=== PATIENT | male | born 1980 | race Caucasian/White ===

== ENCOUNTER 2022-02-22 13:08 | Emergency (ER) | payer MEDICAID, OTHER ==
[~2022-02-22] VITALS: Ht 182.9 cm; Wt 101.8 kg
[~2022-02-22 13:08] MED LIST: LIDOCAINE 5% PATCH; LISI20TA5; MESALAMINE; NO HOME MEDS; PRIL20CA; VICO5TAB
[2022-02-22 13:09] VITALS: BP 143/82
== END 2022-02-22 18:13 | disposition home or self-care (01) ==
LOC: M ED 13:08
DX: L23.5 Allergic contact dermatitis due to other chemical products (principal); I10 Essential (primary) hypertension; F33.9 Major depressive disorder, recurrent, unspecified; F41.9 Anxiety disorder, unspecified; H40.9 Unspecified glaucoma; Z86.73 Personal history of transient ischemic attack (TIA), and cerebral infarction without residual deficits

== ENCOUNTER 2022-05-30 21:25 | Emergency (ER) | payer OTHER ==
[~2022-05-30] VITALS: Ht 182.9 cm; Wt 105.4 kg
[2022-05-31 03:54] VITALS: BP 142/88
== END 2022-05-31 03:55 | disposition home or self-care (01) ==
LOC: M ED 21:25
DX: K62.5 Hemorrhage of anus and rectum (principal); I10 Essential (primary) hypertension; Z88.8 Allergy status to other drugs, medicaments and biological substances; Z91.018 Allergy to other foods; Z91.048 Other nonmedicinal substance allergy status

== ENCOUNTER 2022-09-10 20:22 | Emergency (ER) | payer OTHER ==
[~2022-09-10] VITALS: Ht 182.9 cm; Wt 97.7 kg
[2022-09-10 20:22] VITALS: BP 141/74
== END 2022-09-10 22:50 | disposition left against medical advice (07) ==
LOC: M ED 20:22
DX: Z53.21 Procedure and treatment not carried out due to patient leaving prior to being seen by health care provider (principal)

== ENCOUNTER → 2022-10-30 | Outpatient (REF) | payer OTHER ==
[2022-10-30 13:25] LABS: CHOLESTEROL RISK RATIO 7.5 (<5); HDL CHOLESTEROL 30.1 MG/DL (>40); LDL CHOLESTEROL 169.3 MG/DL (<100)
== END ==
LOC: M LAB REF 12:10
PROVIDERS: ATTEND Nurse Practitioner Family
DX: E78.5 Hyperlipidemia, unspecified (principal)

== ENCOUNTER → 2022-11-06 | Outpatient (CLI) | payer OTHER | LOC: M RAD 10:38 | PROVIDERS: ATTEND Nurse Practitioner Family | DX: M25.532 Pain in left wrist (principal) ==

== ENCOUNTER 2024-04-02 09:38 | Emergency (ER) | payer OTHER ==
[~2024-04-02] VITALS: Ht 182.9 cm; Wt 106.2 kg
[2024-04-02 11:16] VITALS: BP 121/82; TEMP 98.8; O2SAT 97
== END 2024-04-02 12:42 | disposition home or self-care (01) ==
LOC: M ED 09:38
DX: S83.61XA Sprain of the superior tibiofibular joint and ligament, right knee, initial encounter (principal); Y92.9 Unspecified place or not applicable; Y93.9 Activity, unspecified; Y99.9 Unspecified external cause status; Z88.8 Allergy status to other drugs, medicaments and biological substances; Z91.010 Allergy to peanuts

== ENCOUNTER → 2024-12-11 | Outpatient (CLI) | payer OTHER ==
[~2024-12-11] MED LIST changes: +PROHANCE 279.3MG/ML 15ML VIAL As Ordered ONE; +PROHANCE 279.3MG/ML 5ML VIAL As Ordered ONE
== END ==
LOC: M RAD 09:08
PROVIDERS: ATTEND Internal Medicine Addiction Medicine
DX: M25.561 Pain in right knee (principal); S83.241S Other tear of medial meniscus, current injury, right knee, sequela; X58.XXXA Exposure to other specified factors, initial encounter; Y92.9 Unspecified place or not applicable; Y93.9 Activity, unspecified; Y99.9 Unspecified external cause status
CPT/HCPCS: 73723; A9576

== ENCOUNTER → 2024-12-24 | Outpatient (CLI) | payer OTHER ==
[~2024-12-24] MED LIST changes: -PROHANCE 279.3MG/ML 15ML VIAL As Ordered ONE; -PROHANCE 279.3MG/ML 5ML VIAL As Ordered ONE
== END ==
LOC: M SOG 07:52
PROVIDERS: ATTEND Orthopaedic Surgery
DX: M25.561 Pain in right knee (principal)